=== PATIENT | male | born 1975 | race Caucasian/White ===

== ENCOUNTER 2021-06-10 09:30 | Emergency (ER) | payer OTHER ==
[2021-06-10 10:47] LABS: HEMOGLOBIN 15.2 gm/dl (14.0-17.5); RED BLOOD COUNT 4.78 M/UL (4.20-5.50); WHITE BLOOD COUNT 5.1 K/UL (4.5-11.0)
[2021-06-10 12:21] LABS: BUN/CREATININE RATIO 18 (0-10)
[2021-06-10] MEDS ORDERED: NARCAN4 MG (14:48)
[2021-06-10] MEDS ORDERED: ZOFRAN ODT 4 MG4 MG SL (14:48)
== END 2021-06-10 14:53 | disposition home or self-care (01) ==
LOC: ER1 09:30
PROVIDERS: Emergency Medicine
DX: T43.621A Poisoning by amphetamines, accidental (unintentional), initial encounter (principal); T50.7X1A Poisoning by analeptics and opioid receptor antagonists, accidental (unintentional), initial encounter; E11.649 Type 2 diabetes mellitus with hypoglycemia without coma
CPT/HCPCS: 80053; 80307; 81001; 82962; 83690; 83735; 85025; 93005; 96374; 99285; G0480; J2310

== ENCOUNTER 2021-06-21 17:51 | Inpatient (IN) | payer OTHER ==
[~2021-06-21] VITALS: Ht 175.3 cm; Wt 50.0 kg
[~2021-06-21 17:51] MED LIST: NARCAN4 MG; ZOFRAN ODT 4 MG4 MG SL
[2021-06-21 18:28] LABS: RED BLOOD COUNT 4.2 M/UL (4.20-5.50); WHITE BLOOD COUNT 29.2 K/UL (4.5-11.0)
--- NOTE | 2021-06-22 04:08 | NUR ---
Taking patient to cat scan. Dr. Acharya verbal order to give 2 mg Ativan one-time if needed.
[2021-06-22 05:51] LABS: HEMOGLOBIN 11.9 gm/dl (14.0-17.5); RED BLOOD COUNT 3.88 M/UL (4.20-5.50)
[2021-06-22 05:55] LABS: WHITE BLOOD COUNT 30.6 K/UL (4.5-11.0)
[2021-06-22] MEDS ORDERED: BUPRENORPHIN-N1 EACH SL (09:30)
[2021-06-22] MEDS ORDERED: VIAGRA100 MG PO (09:30)
[2021-06-22] MEDS ORDERED: NOVOLOG 10100 UNITS/ INJ (09:32)
[2021-06-22 13:01] LABS: BUN/CREATININE RATIO 51 (0-10)
[2021-06-22 17:15] LABS: BUN/CREATININE RATIO 52 (0-10)
[2021-06-22 22:04] LABS: BUN/CREATININE RATIO 51 (0-10)
[2021-06-23 05:09] LABS: HEMOGLOBIN 11.3 gm/dl (14.0-17.5); RED BLOOD COUNT 3.7 M/UL (4.20-5.50)
[2021-06-23 05:10] LABS: WHITE BLOOD COUNT 20.1 K/UL (4.5-11.0)
[2021-06-23 05:50] LABS: BUN/CREATININE RATIO 50 (0-10)
[2021-06-24 05:39] LABS: HEMOGLOBIN 11.8 gm/dl (14.0-17.5); RED BLOOD COUNT 3.84 M/UL (4.20-5.50); WHITE BLOOD COUNT 10.5 K/UL (4.5-11.0)
[2021-06-24 05:42] LABS: BUN/CREATININE RATIO 34 (0-10)
[2021-06-24 19:29] LABS: BUN/CREATININE RATIO 34 (0-10)
[2021-06-25 05:21] LABS: HEMOGLOBIN 11.3 gm/dl (14.0-17.5); RED BLOOD COUNT 3.75 M/UL (4.20-5.50)
[2021-06-25 05:55] LABS: BUN/CREATININE RATIO 31 (0-10)
[2021-06-26 04:26] LABS: HEMOGLOBIN 11.2 gm/dl (14.0-17.5); RED BLOOD COUNT 3.72 M/UL (4.20-5.50)
[2021-06-26 05:03] LABS: BUN/CREATININE RATIO 21 (0-10)
[2021-06-27 04:02] LABS: HEMOGLOBIN 11.4 gm/dl (14.0-17.5); RED BLOOD COUNT 3.9 M/UL (4.20-5.50); WHITE BLOOD COUNT 7.7 K/UL (4.5-11.0)
[2021-06-27 04:29] LABS: BUN/CREATININE RATIO 18 (0-10)
[2021-06-27] MEDS ORDERED: AUGMENTIN 875-1 EACH PO (09:24)
[2021-06-27] MEDS ORDERED: NOVOLOG 10100 UNITS/ INJ (10:08)
== END 2021-06-27 13:39 | disposition home or self-care (01) | DRG 871 ==
LOC: ER1 17:51 → CCU 22:22 → CDU 22:22 → CCU 06-22 00:26 → PROG CARE 06-25 22:18
PROVIDERS: Family Medicine; Internal Medicine; ADMIT Internal Medicine
PROC: 3E033XZ Introduction of Vasopressor into Peripheral Vein, Percutaneous Approach (ICD-10-PCS; principal; 2021-06-22)
PROC: 05HM33Z Insertion of Infusion Device into Right Internal Jugular Vein, Percutaneous Approach (ICD-10-PCS; 2021-06-23)
PROC: B543ZZA Ultrasonography of Right Jugular Veins, Guidance (ICD-10-PCS; 2021-06-23)
PROC: 8E0ZXY6 Isolation (ICD-10-PCS; 2021-06-25)
DX: A41.9 Sepsis, unspecified organism (principal); E10.10 Type 1 diabetes mellitus with ketoacidosis without coma; R57.1 Hypovolemic shock; R65.21 Severe sepsis with septic shock; U07.1 COVID-19; G92 Toxic encephalopathy; N17.9 Acute kidney failure, unspecified; E44.0 Moderate protein-calorie malnutrition; M62.82 Rhabdomyolysis; E87.1 Hypo-osmolality and hyponatremia; F15.23 Other stimulant dependence with withdrawal; Z68.1 Body mass index [BMI] 19.9 or less, adult; F11.20 Opioid dependence, uncomplicated; E87.0 Hyperosmolality and hypernatremia; J32.4 Chronic pansinusitis; F19.10 Other psychoactive substance abuse, uncomplicated; E10.649 Type 1 diabetes mellitus with hypoglycemia without coma; E86.0 Dehydration; R45.1 Restlessness and agitation; F12.10 Cannabis abuse, uncomplicated; F91.9 Conduct disorder, unspecified; I95.9 Hypotension, unspecified; E87.6 Hypokalemia; Z91.14 Patient's other noncompliance with medication regimen
CPT/HCPCS: 36415; 36600; 70450; 70551; 71045; 80048; 80053; 80202; 80307; 81001; 82009; 82550; 82553; 82803; 82947; 82962; 83605; 83735; 83874; 84132; 84484; 85025; 85027; 87040; 87086; 92526; 92610; 93005; 96374; 96375; 99285; A6212; C1751; C9113; J0692; J1630; J1644; J2060; J2270; J2310; J3370; J3475; J3480; J3486; J7030; J7070; U0002

== ENCOUNTER 2021-10-14 14:21 | Inpatient (IN) | payer OTHER ==
[~2021-10-14] VITALS: Ht 170.2 cm; Wt 63.5 kg
[~2021-10-14 14:21] MED LIST changes: +AUGMENTIN 875-1 EACH PO; +BUPRENORPHIN-N1 EACH SL; +NOVOLOG 10100 UNITS/ INJ; +VIAGRA100 MG PO
[2021-10-14 20:12] LABS: HEMOGLOBIN 13.9 gm/dl (14.0-17.5); RED BLOOD COUNT 4.54 M/UL (4.20-5.50); WHITE BLOOD COUNT 8.5 K/UL (4.5-11.0)
[2021-10-14 20:28] LABS: BUN/CREATININE RATIO 19 (0-10)
[2021-10-15 07:45] LABS: HEMOGLOBIN 13.4 gm/dl (14.0-17.5); RED BLOOD COUNT 4.6 M/UL (4.20-5.50); WHITE BLOOD COUNT 6.9 K/UL (4.5-11.0)
[2021-10-15 08:15] LABS: BUN/CREATININE RATIO 16 (0-10)
[2021-10-15] MEDS ORDERED: NOVOLIN 70100 UNITS/ SQ (10:11)
[2021-10-15] MEDS ORDERED: OMEPRAZOLE40 MG PO (10:12)
--- NOTE | 2021-10-15 14:24 | NUR ---
WOUND CULTURE OF ABSCESS TO LLE OBTAINED. NO DISTRESS NOTED. WCTM.
--- NOTE | 2021-10-16 09:44 | NUR ---
REPEAT BS IS 370. IMPROVED WITH INSULIN
[2021-10-16] MEDS ORDERED: ZYVOX600 MG PO (12:54)
[2021-10-17 06:44] LABS: HEMOGLOBIN 13.5 gm/dl (14.0-17.5); RED BLOOD COUNT 4.5 M/UL (4.20-5.50); WHITE BLOOD COUNT 6.5 K/UL (4.5-11.0)
[2021-10-17 07:05] LABS: BUN/CREATININE RATIO 17 (0-10)
[2021-10-17] MEDS ORDERED: HYDROCODON-ACE1 EAC2 PO ×2 (10:59→11:12)
[2021-10-17] MEDS ORDERED: MUPIROCIN30 GM TP (11:12)
[2021-10-17] MEDS ORDERED: ZYVOX600 MG PO (11:12)
[2021-10-17] MEDS ORDERED: [UNRECOGNIZED DRUG - OTHER] TP (11:12)
== END 2021-10-17 13:20 | disposition home or self-care (01) | DRG 603 ==
LOC: ER1 14:21 → MED SURG 4 21:14 → CDU 21:14 → MED SURG 4 23:11
PROVIDERS: Emergency Medicine; Physician Assistant; ADMIT Internal Medicine Infectious Disease
PROC: 0H9LXZZ Drainage of Left Lower Leg Skin, External Approach (ICD-10-PCS; principal; 2021-10-14)
DX: L03.116 Cellulitis of left lower limb (principal); F11.20 Opioid dependence, uncomplicated; E10.9 Type 1 diabetes mellitus without complications; F17.210 Nicotine dependence, cigarettes, uncomplicated; B95.62 Methicillin resistant Staphylococcus aureus infection as the cause of diseases classified elsewhere; K21.9 Gastro-esophageal reflux disease without esophagitis; Z96.41 Presence of insulin pump (external) (internal); Z20.822 Contact with and (suspected) exposure to COVID-19; Z90.49 Acquired absence of other specified parts of digestive tract; Z82.49 Family history of ischemic heart disease and other diseases of the circulatory system; Z83.3 Family history of diabetes mellitus; Z79.899 Other long term (current) drug therapy; Z79.4 Long term (current) use of insulin
CPT/HCPCS: 36415; 73590; 80048; 80202; 82962; 83036; 83605; 85025; 85027; 87040; 87070; 87077; 87186; 87205; 96374; 96375; 99284; J1170; J1650; J2270; J2543; J3370; J7070; U0002

== ENCOUNTER 2021-10-28 07:48 | Inpatient (IN) | payer OTHER ==
[~2021-10-28] VITALS: Ht 172.7 cm; Wt 75.0 kg
[~2021-10-28 07:48] MED LIST changes: +HYDROCODON-ACE1 EAC2 PO; +MUPIROCIN30 GM TP; +NOVOLIN 70100 UNITS/ SQ; +OMEPRAZOLE40 MG PO; +ZYVOX600 MG PO; +[UNRECOGNIZED DRUG - OTHER] TP
[2021-10-28 09:30] LABS: HEMOGLOBIN 14.9 gm/dl (14.0-17.5); RED BLOOD COUNT 4.93 M/UL (4.20-5.50); WHITE BLOOD COUNT 12.5 K/UL (4.5-11.0)
[2021-10-28] MEDS ORDERED: ZYVOX600 MG PO (09:56)
[2021-10-28 10:21] LABS: BUN/CREATININE RATIO 21 (0-10)
[2021-10-29 05:16] LABS: HEMOGLOBIN 12.1 gm/dl (14.0-17.5); RED BLOOD COUNT 4.07 M/UL (4.20-5.50); WHITE BLOOD COUNT 5.7 K/UL (4.5-11.0)
[2021-10-29 05:38] LABS: BUN/CREATININE RATIO 18 (0-10)
[2021-10-30 05:42] LABS: HEMOGLOBIN 13.8 gm/dl (14.0-17.5); WHITE BLOOD COUNT 6.5 K/UL (4.5-11.0)
[2021-10-30 05:43] LABS: RED BLOOD COUNT 4.7 M/UL (4.20-5.50)
[2021-10-30 06:05] LABS: BUN/CREATININE RATIO 21 (0-10)
[2021-10-31 04:25] LABS: HEMOGLOBIN 13.1 gm/dl (14.0-17.5); RED BLOOD COUNT 4.43 M/UL (4.20-5.50); WHITE BLOOD COUNT 6.8 K/UL (4.5-11.0)
[2021-10-31 06:27] LABS: BUN/CREATININE RATIO 23 (0-10)
[2021-11-01 04:23] LABS: HEMOGLOBIN 11.8 gm/dl (14.0-17.5); RED BLOOD COUNT 4.07 M/UL (4.20-5.50); WHITE BLOOD COUNT 6.8 K/UL (4.5-11.0)
[2021-11-01 05:15] LABS: BUN/CREATININE RATIO 19 (0-10)
[2021-11-02 05:42] LABS: HEMOGLOBIN 11.8 gm/dl (14.0-17.5); RED BLOOD COUNT 4.03 M/UL (4.20-5.50); WHITE BLOOD COUNT 6.2 K/UL (4.5-11.0)
[2021-11-02 06:48] LABS: BUN/CREATININE RATIO 24 (0-10)
[2021-11-03 05:39] LABS: HEMOGLOBIN 13.5 gm/dl (14.0-17.5)
[2021-11-03 05:46] LABS: RED BLOOD COUNT 4.55 M/UL (4.20-5.50)
[2021-11-03 06:30] LABS: BUN/CREATININE RATIO 26 (0-10)
[2021-11-04 06:00] LABS: HEMOGLOBIN 13.1 gm/dl (14.0-17.5); RED BLOOD COUNT 4.38 M/UL (4.20-5.50); WHITE BLOOD COUNT 6.7 K/UL (4.5-11.0)
[2021-11-04 08:48] LABS: BUN/CREATININE RATIO 27 (0-10)
--- NOTE | 2021-11-04 19:36 | NUR ---
HEART RATE OF 160 SHOWING ON TELE MONITOR. TOOK MANUALLY AND GOT 156. CALLED DR. POWELL TO NOTIFY HIM. GOT ORDER FOR METOPROLOL 12.5 PO NOW AND CONTINUE BID. MEDICATION GIVEN. WILL CONTINUE TO MONITOR
--- NOTE | 2021-11-04 23:24 | NUR ---
ATTEMPTED TO START THE ORDERED NORMAL SALINE VIA CENTRAL LINE IN RIGHT IJ TO WHICH THE FLUID CAME BACK OUT THROUGH THE INSERTION SITE. LEFT THE ROOM TO CALL DR. WOO, UPON RETURN THE PATIENT HAD PULLED THE LINE COMPLETELY OUT. THE SITE DID NOT BLEED AND THE TIP OF THE CATHETER WAS PATENT AND INTACT. YELLOW PUS AND FLUID WAS NOTED COMING FROM THE SITE. PRESSURE WAS HELD FOR [address] WOO, RECEIVED ORDERS TO CULTURE SITE AND HAVE PHARMACY DOSE VANCO.
--- NOTE | 2021-11-04 23:28 | NUR ---
PATIENT WANTED TO GO OUTSIDE TO SMOKE. I EXPLAINED TO THE PATIENT THAT I COULD NOT STOP HIM, BUT THAT IT WOULD BE SAFER FOR HIM TO STAY IN HIS ROOM SO THAT I CAN MONITOR HIS HEART RATE SINCE IT HAS BEEN RUNNING HIGH. EXPLAINED THE RISK OF A FALL. PATIENT STATED HE KNEW THE RISKS AND WANTED TO GO ANYWAYS. WILL CONTINUE TO MONITOR.
[2021-11-05 06:53] LABS: HEMOGLOBIN 12.1 gm/dl (14.0-17.5); RED BLOOD COUNT 4.1 M/UL (4.20-5.50); WHITE BLOOD COUNT 7.3 K/UL (4.5-11.0)
[2021-11-05 07:01] LABS: BUN/CREATININE RATIO 25 (0-10)
--- NOTE | 2021-11-06 06:13 | NUR ---
PT UPSET BECAUSE I WOULD NOT GIVE HIS MORPHINE AN HOUR EARLY. STATED THAT NURSES DO IT ALL THE TIME, I EXPLAINED THAT THEY SHOULDNT BE DOING THAT AND SOON ITS DUE ILL BRING IT. HE SLAMMED THE DOOR I LEFT THE ROOM.
[2021-11-06] MEDS ORDERED: LOPRESSOR 25 MG25 MG PO (09:48)
[2021-11-06] MEDS ORDERED: VALIUM 5 MG TAB5 MG PO (09:48)
[2021-11-06] MEDS ORDERED: HYDROCODON-ACE1 EAC4 PO (09:48)
[2021-11-06] MEDS ORDERED: CATAPRES 0.1MG0.1 MG PO (09:48)
[2021-11-06] MEDS ORDERED: QUETIAPINE FUMA25 MG PO (09:48)
--- NOTE | 2021-11-06 13:01 | NUR ---
patients iv discontinued at discharge, tolerated well.
[2021-11-06] MEDS ORDERED: HYDROCODONE-AC1 EACH PO (15:08)
[2021-11-06] MEDS ORDERED: DIAZEPAM10 MG PO (15:08)
== END 2021-11-06 13:15 | disposition home or self-care (01) | DRG 917 ==
LOC: ER1 07:48 → CDU 09:39 → CCU 09:39 → M/S 11-04 17:21
PROVIDERS: Emergency Medicine; Internal Medicine; Physician Assistant Medical; ADMIT Internal Medicine
PROC: 3E033XZ Introduction of Vasopressor into Peripheral Vein, Percutaneous Approach (ICD-10-PCS; principal; 2021-10-28)
PROC: 0BH17EZ Insertion of Endotracheal Airway into Trachea, Via Natural or Artificial Opening (ICD-10-PCS; 2021-10-28)
PROC: 5A1955Z Respiratory Ventilation, Greater than 96 Consecutive Hours (ICD-10-PCS; 2021-10-28)
PROC: 02HV33Z Insertion of Infusion Device into Superior Vena Cava, Percutaneous Approach (ICD-10-PCS; 2021-10-28)
PROC: B548ZZA Ultrasonography of Superior Vena Cava, Guidance (ICD-10-PCS; 2021-10-28)
DX: T40.991A Poisoning by other psychodysleptics [hallucinogens], accidental (unintentional), initial encounter (principal); J96.01 Acute respiratory failure with hypoxia; G92.8 Other toxic encephalopathy; J96.02 Acute respiratory failure with hypercapnia; J69.0 Pneumonitis due to inhalation of food and vomit; M62.82 Rhabdomyolysis; F11.20 Opioid dependence, uncomplicated; T78.2XXA Anaphylactic shock, unspecified, initial encounter; F17.210 Nicotine dependence, cigarettes, uncomplicated; F12.10 Cannabis abuse, uncomplicated; T42.4X1A Poisoning by benzodiazepines, accidental (unintentional), initial encounter; K21.9 Gastro-esophageal reflux disease without esophagitis; B95.62 Methicillin resistant Staphylococcus aureus infection as the cause of diseases classified elsewhere; E87.6 Hypokalemia; Z96.41 Presence of insulin pump (external) (internal); T40.721A Poisoning by synthetic cannabinoids, accidental (unintentional), initial encounter; E10.65 Type 1 diabetes mellitus with hyperglycemia; R00.0 Tachycardia, unspecified; E10.649 Type 1 diabetes mellitus with hypoglycemia without coma; Z79.4 Long term (current) use of insulin; Z90.49 Acquired absence of other specified parts of digestive tract; Z82.49 Family history of ischemic heart disease and other diseases of the circulatory system
CPT/HCPCS: 31500; 36415; 36556; 36600; 70450; 71045; 80048; 80053; 80202; 80307; 81001; 82533; 82550; 82553; 82803; 82962; 83605; 83735; 83874; 84132; 84439; 84443; 84484; 85025; 85027; 87040; 87070; 87205; 93005; 94002; 94003; 94760; 99285; A6212; C9113; J0171; J1610; J1650; J2020; J2060; J2250; J2270; J2370; J2405; J2543; J2704; J3360; J3370; J7030; J7042; J7070; U0002

== ENCOUNTER 2021-12-05 05:08 | Emergency (ER) | payer OTHER ==
[~2021-12-05 05:08] MED LIST changes: +CATAPRES 0.1MG0.1 MG PO; +DIAZEPAM10 MG PO; +HYDROCODON-ACE1 EAC4 PO; +HYDROCODONE-AC1 EACH PO; +LOPRESSOR 25 MG25 MG PO; +QUETIAPINE FUMA25 MG PO; +VALIUM 5 MG TAB5 MG PO
[2021-12-05 05:53] LABS: HEMOGLOBIN 11.4 gm/dl (14.0-17.5); RED BLOOD COUNT 3.66 M/UL (4.20-5.50); WHITE BLOOD COUNT 5.9 K/UL (4.5-11.0)
[2021-12-05 06:31] LABS: BUN/CREATININE RATIO 22 (0-10)
== END 2021-12-05 08:00 | disposition left against medical advice (07) ==
LOC: ER1 05:08
PROVIDERS: Student in an Organized Health Care Education/Training Program
DX: E11.65 Type 2 diabetes mellitus with hyperglycemia (principal); I95.9 Hypotension, unspecified; Z20.822 Contact with and (suspected) exposure to COVID-19
CPT/HCPCS: 70450; 71045; 80053; 82550; 82553; 82962; 83605; 84484; 85025; 87040; 93005; 96374; 96375; 99283; J3370; J7030; U0002

== ENCOUNTER 2021-12-10 11:56 | Inpatient (IN) | payer OTHER ==
[~2021-12-10] VITALS: Ht 167.6 cm; Wt 59.0 kg
[2021-12-10 13:11] LABS: HEMOGLOBIN 12.6 gm/dl (14.0-17.5); RED BLOOD COUNT 3.96 M/UL (4.20-5.50); WHITE BLOOD COUNT 5.3 K/UL (4.5-11.0)
[2021-12-10 14:16] LABS: BUN/CREATININE RATIO 23 (0-10)
[2021-12-10] MEDS ORDERED: CLONIDINE HCL0.1 MG PO (16:26)
[2021-12-10] MEDS ORDERED: BUPRENORPHIN-N1 EACH PO (16:28)
[2021-12-10] MEDS ORDERED: NOVOLOG 10100 UNITS/ INJ (16:28)
[2021-12-10] MEDS ORDERED: METOPROLOL TART25 MG PO (16:30)
[2021-12-11 05:36] LABS: HEMOGLOBIN 11.9 gm/dl (14.0-17.5); RED BLOOD COUNT 3.82 M/UL (4.20-5.50); WHITE BLOOD COUNT 5.9 K/UL (4.5-11.0)
[2021-12-11 06:00] LABS: BUN/CREATININE RATIO 16 (0-10)
[2021-12-12 05:16] LABS: RED BLOOD COUNT 3.78 M/UL (4.20-5.50)
[2021-12-12 05:18] LABS: WHITE BLOOD COUNT 10.1 K/UL (4.5-11.0)
[2021-12-12 05:44] LABS: BUN/CREATININE RATIO 13 (0-10)
--- NOTE | 2021-12-12 18:19 | NUR ---
RECEIVED PATIENT TO FLOOR AT 1810. [id number]. STABLE. [email or web address]/HR INFUSING. ZOSYN INFUSING. F/C INTACT. NO DISTRESS NOTED. PAT.
--- NOTE | 2021-12-13 15:10 | NUR ---
PATIENT CURSING NURSE AND NURSING STAFF. PATIENT STATES HE IS LEAVING AMA. DR. MERLOS NOTIFIED THAT PATIENT IS LEAVING AMA. STATED HE CAN GO AMA. ATTEMPTED TO REDIRECT PATIENT. IV'S REMOVED. PATIENT REFUSED TO SIGN AMA PAPERS. PATIENT STATED THAT HE WASN'T SIGNING AMA BECAUSE HE SHOULD HAVE BEEN RELEASED. EDUIN SCHUMACHER RN WITNESSED PATIENT REFUSING TO SIGN AMA FORM. PATIENT LEFT THE FLOOR AMBULATORY AT 1512.
== END 2021-12-13 14:30 | disposition left against medical advice (07) | DRG 637 ==
LOC: ER1 11:56 → CDU 14:49 → CCU 14:49 → M/S 12-12 18:13
PROVIDERS: Emergency Medicine; Physician Assistant Medical; ADMIT Internal Medicine
PROC: 5A1945Z Respiratory Ventilation, 24-96 Consecutive Hours (ICD-10-PCS; principal; 2021-12-10)
PROC: 0BH17EZ Insertion of Endotracheal Airway into Trachea, Via Natural or Artificial Opening (ICD-10-PCS; 2021-12-10)
PROC: 3E03329 Introduction of Other Anti-infective into Peripheral Vein, Percutaneous Approach (ICD-10-PCS; 2021-12-10)
DX: E11.649 Type 2 diabetes mellitus with hypoglycemia without coma (principal); Z20.822 Contact with and (suspected) exposure to COVID-19; J96.01 Acute respiratory failure with hypoxia; G93.41 Metabolic encephalopathy; J69.0 Pneumonitis due to inhalation of food and vomit; J15.9 Unspecified bacterial pneumonia; F11.20 Opioid dependence, uncomplicated; E87.2 Acidosis; M62.82 Rhabdomyolysis; F15.20 Other stimulant dependence, uncomplicated; R45.1 Restlessness and agitation; F17.200 Nicotine dependence, unspecified, uncomplicated; K21.9 Gastro-esophageal reflux disease without esophagitis; R74.01 Elevation of levels of liver transaminase levels; Z90.49 Acquired absence of other specified parts of digestive tract; Z79.899 Other long term (current) drug therapy; T38.3X5A Adverse effect of insulin and oral hypoglycemic [antidiabetic] drugs, initial encounter; Z82.49 Family history of ischemic heart disease and other diseases of the circulatory system; Z79.4 Long term (current) use of insulin
CPT/HCPCS: 31500; 36415; 36600; 70450; 71045; 80048; 80053; 80307; 82247; 82550; 82553; 82803; 82962; 83605; 83735; 83874; 84075; 84450; 84460; 84484; 85025; 85027; 87040; 94002; 94003; 94760; 96374; 96375; 99285; C9113; G0480; J0330; J1650; J2250; J2543; J2704; J7030; U0002

== ENCOUNTER 2022-01-24 14:53 | Emergency (ER) | payer OTHER ==
[~2022-01-24 14:53] MED LIST changes: +BUPRENORPHIN-N1 EACH PO; +CLONIDINE HCL0.1 MG PO; +METOPROLOL TART25 MG PO
[2022-01-24] MEDS ORDERED: IBUPROFEN800 MG PO (19:17)
== END 2022-01-24 19:32 | disposition home or self-care (01) ==
LOC: ER1 14:53
DX: S61.211A Laceration without foreign body of left index finger without damage to nail, initial encounter (principal); F17.200 Nicotine dependence, unspecified, uncomplicated; W45.8XXA Other foreign body or object entering through skin, initial encounter; Y92.009 Unspecified place in unspecified non-institutional (private) residence as the place of occurrence of the external cause
CPT/HCPCS: 12002; 99283

== ENCOUNTER 2022-03-19 19:12 | Emergency (ER) | payer OTHER ==
[~2022-03-19 19:12] MED LIST changes: +IBUPROFEN800 MG PO
[2022-03-19 20:10] LABS: HEMOGLOBIN 12.7 gm/dl (14.0-17.5); RED BLOOD COUNT 4.07 M/UL (4.20-5.50); WHITE BLOOD COUNT 9.1 K/UL (4.5-11.0)
[2022-03-19 20:42] LABS: BUN/CREATININE RATIO 31 (0-10)
[2022-03-19] MEDS ORDERED: IBU800 MG PO (22:10)
[2022-03-19] MEDS ORDERED: ROBAXIN 750 MG750 MG GT (22:10)
== END 2022-03-19 22:35 | disposition home or self-care (01) ==
LOC: ER1 19:12
DX: E10.649 Type 1 diabetes mellitus with hypoglycemia without coma (principal); S01.81XA Laceration without foreign body of other part of head, initial encounter; S40.012A Contusion of left shoulder, initial encounter; Z91.018 Allergy to other foods; W19.XXXA Unspecified fall, initial encounter
CPT/HCPCS: 70450; 73030; 73080; 73090; 73130; 80053; 82962; 85025; 99284

== ENCOUNTER → 2022-05-04 | Outpatient (CLI) | payer OTHER ==
[~2022-05-04] MED LIST changes: +IBU800 MG PO; +ROBAXIN 750 MG750 MG GT
[2022-05-04 15:14] LABS: HEMOGLOBIN 13.5 gm/dl (14.0-17.5); RED BLOOD COUNT 4.4 M/UL (4.20-5.50)
[2022-05-04 15:41] LABS: BUN/CREATININE RATIO 22 (0-10)
[2022-05-05 08:14] LABS: HIV AB/P24 AG SCREEN Non Reactive (Non Reactive); RPR Non Reactive (Non Reactive)
[2022-05-05 09:14] LABS: HBSAG SCREEN Negative (Negative); HEP A AB, IGM Negative (Negative); HEPATITIS B SURF AB QUANT <3.1 mIU/mL (Immunity>9.9)
[2022-05-05 22:06] LABS: HEPATITIS C QUANTITATION HCV Not Detected IU/mL (.)
[2022-05-06 19:12] LABS: QUANTIFERON MITOGEN VALUE >10.00 IU/mL (.); QUANTIFERON-TB GOLD PLUS Negative (Negative)
[2022-05-07 01:07] LABS: ALT (SGPT) P5P 25 IU/L (0-55); APOLIPOPROTEIN A-1 173 mg/dL (101-178); BILIRUBIN, TOTAL 0.2 mg/dL (0.0-1.2); FIBROSIS SCORE 0.21 (0.00-0.21); GGT 41 IU/L (0-65); HAPTOGLOBIN 132 mg/dL (23-355); NECROINFLAMMAT ACTIVITY GRADE A0-No activity (.)
== END ==
LOC: LAB 13:44
PROVIDERS: Nurse Practitioner
DX: B19.20 Unspecified viral hepatitis C without hepatic coma (principal); R74.01 Elevation of levels of liver transaminase levels
CPT/HCPCS: 36415; 80053; 81596; 82172; 82247; 82977; 83010; 84460; 85025; 85610; 86317; 86592; 86704; 86706; 86709; 87340; 87389; 87522; 87902